=== PATIENT | male | born 2000 | race Caucasian/White ===

== ENCOUNTER 2020-07-30 00:06 | Emergency (ER) | payer OTHER, MEDICAID, SELFPAY ==
[2020-07-30 00:10] VITALS: BP 154/94; PULSE 74; RESP 18; TEMP 36.5; O2SAT 100
--- NOTE | 2020-07-30 00:20 | ED.EXTPRO ---
HPI - Extremity Problem General Chief complaint: Extremity Problem,Nontraumatic Stated complaint: feet pain Time Seen by Provider: 07/30/20 00:13 History of Present Illness HPI Narrative: Aching pain throughout the bilateral feet. He was working with cement today and is worried that it got into his boots. He says that he has already thoroughly washed his feet multiple times since then. No wounds, blisters, redness. Related Data Home Medications Medication Instructions Recorded Confirmed No Home Medications 07/30/20 07/30/20 Allergies Allergy/AdvReac Type Severity Reaction Status Date / Time No Known Allergies Allergy Verified 07/30/20 00:21 Review of Systems Review of Systems: All systems reviewed & are unremarkable except as noted in HPI and below Constitutional: Constitutional: Denies fever(s) Integumentary/Breasts: Skin/Breast: Denies erythema, Denies rash and Denies skin ulcer Neurologic: Denies numbness and Denies weakness Exam Const: General: healthy appearing, no acute distress and alert Nutritional Appearance: well nourished Orientation/consciousness: patient oriented x3 HENMT: Head: normal to inspection Cardio: Other: 2+ DP and PT pulses bilaterally Skin: General skin exam: normal color Rashes: no rashes Wounds: no wounds Neuro: General: patient oriented x3, moves all extremities and no focal motor deficits Speech: normal speech Gait exam (Neuro): Normal gait present Extrem: Other: Diffuse tenderness to bilateral feet otherwise completely normal exam Course Vital Signs Vital signs: Vital Signs Temperature 36.5 C 07/30/20 00:10 Pulse Rate 74 07/30/20 00:10 Respiratory Rate 18 07/30/20 00:10 Blood Pressure 154/94 H 07/30/20 00:10 Pulse Oximetry 100 07/30/20 00:10 Temperature 36.9 C 07/30/20 03:12 Pulse Rate 76 07/30/20 03:12 Respiratory Rate 18 07/30/20 03:12 Blood Pressure 144/83 H 07/30/20 03:12 Pulse Oximetry 98 07/30/20 03:12 MDM - Extremity (Nontraumatic) MDM Narrative Medical decision making narrative: Coud have minor or early devloping chemical burn. Nothing evident on exam. Feet are already clean and dry. Pain improved with topical steroid. Discharge Plan Discharge Clinical Impression: Exposure to chemical irritant Patient Disposition: Home, Self-Care Condition: Stable Instructions: Chemical Skin Burn (ED) Prescriptions: No Action No Home Medications RF: 0 Follow-up/Referrals: PHYSICIAN NOT ON STAFF,NONSTAFF [Primary Care Provider] - Discharge Date/Time: 07/30/20 03:13
[2020-07-30] MEDS: IBUPROFEN 600 MG TABLET PO (00:55)
[2020-07-30] MEDS: HYDROCORTISONE 1% 30 GM OINTMENT 1 APPLIC TOPICAL (00:56)
[2020-07-30 03:12] VITALS: BP 144/83; PULSE 76; RESP 18; TEMP 36.9; O2SAT 98
== END 2020-07-30 03:13 | disposition home or self-care (01) ==
PROVIDERS: Emergency Provider Emergency Medicine
DX: Z77.098 Contact with and (suspected) exposure to other hazardous, chiefly nonmedicinal, chemicals (principal)
CPT/HCPCS: 99283; A9270

== ENCOUNTER 2020-08-04 22:54 | Emergency (ER) | payer OTHER, MEDICAID, SELFPAY ==
--- NOTE | ~2020-08-04 | CT_ITS ---
EXAMINATION: CT brain wo con EXAM DATE: 08/05/2020 00:20 INDICATION: Right leg paresthesia. TECHNIQUE: Spiral CT of the head was performed without contrast. Axial, coronal and sagittal images were reviewed. The dose-length product (DLP) for this examination was 605.33 mGy-cm. The exposure w as tailored according to patient size, and iterative reconstruction (ASIR) was used as additional dos e reduction technique. Comparison is made to prior examination from 03/29/2018. FINDINGS: There is no acute intraparenchymal hemorrhage. No evidence of intraparenchymal brain mass lesion. No evidence of acute infarction. There is no mass effect or midline shift. The ventricles are normal in size. There are no extra-axial collections. There are no acute calvarial fractures. T he orbits are unremarkable. Soft tissue is unremarkable. The visualized sinuses and mastoid air paige ls are well aerated. IMPRESSION: 1. Normal head CT examination. Reviewed, dictated and finalized at location A.
--- NOTE | ~2020-08-04 | CT_ITS ---
EXAMINATION: CT LE RT w con EXAM DATE: 08/05/2020 00:20 INDICATION: Right lower extremity pain and numbness. TECHNIQUE: Spiral CTA right leg was performed following intravenous injection of 100 mL Omnipaque 350 . Axial, coronal and sagittal images were reviewed. The dose-length product (DLP) for this examinat ion was 764.62 mGy-cm. The exposure was tailored according to patient size (auto mA exposure control ), and iterative reconstruction (ASIR) was used as additional dose reduction technique. Correlation i s made to CT abdomen pelvis 10/23/2017. FINDINGS: Arteries and veins are patent, no evidence of thrombosis. There is no right knee joint effu aristeo. The thigh and calf musculature is normal. No abscess. No inguinal or right-sided pelvic lymphad enopathy. There are no acute fractures identified. IMPRESSION: Normal right lower extremity CT Reviewed, dictated and finalized at location A.
[2020-08-04 23:03] VITALS: BP 153/85; PULSE 99; RESP 16; TEMP 36.9; O2SAT 99
--- NOTE | 2020-08-04 23:05 | ED.EXTPRO ---
HPI - Extremity Problem General Chief complaint: Extremity Problem,Nontraumatic Stated complaint: RLE pain Time Seen by Provider: 08/04/20 23:05 Source: patient Mode of arrival: wheelchair Limitations: no limitations History of Present Illness HPI Narrative: Patient is a previously healthy 19-year-old male who presents for evaluation of right lower extremity numbness and weakness. Patient states symptoms have been worsening over the past 3 days and today he has been unable to ambulate. He reports a cramping type pain and stiffness in his right lower leg that begins in the knee and radiates into his calf muscle. He states that he has had no recent falls or injuries. No recent heavy lifting. He denies any back pain or abdominal pain. He denies any headache or vision changes. No weakness in his upper extremities. Patient reports concurrent numbness and paresthesias in the right lower extremity with extreme pain with movement. He states he is unable to bend his leg at the knee. He denies any fever or chills. He denies swelling or redness. No wounds. No history of injury in this leg in the past. Related Data Home Medications Medication Instructions Recorded Confirmed bupropion HCl mg PO 08/04/20 hydroxyzine HCl 08/04/20 Allergies Allergy/AdvReac Type Severity Reaction Status Date / Time No Known Allergies Allergy Verified 08/04/20 23:08 Review of Systems Review of Systems: Narrative: CONSTITUTIONAL: Denies fever, chills, or sweats. EYES: Denies visual changes ENT: Denies rhinorrhea, congestion, sore throat, or otalgia. CARDIOVASCULAR: Denies chest pain, palpitations, or edema. RESPIRATORY: Denies cough or dyspnea. GASTROINTESTINAL: Denies abdominal pain, nausea, vomiting, or diarrhea. GENITOURINARY: Denies dysuria or hematuria. SKIN: Denies rash or itching. MUSCULOSKELETAL: Denies back pain, joint pain, or myalgia. NEUROLOGIC: Denies headache, reports numbness and weakness in the right lower extremity PMFSH Past Medical History Medical History ADHD Sinus problem Social History Social History Smoking status: Never smoker Alcohol intake: never Exam Narrative: Exam Narrative: GENERAL: Awake, alert, conversant HEAD: Normocephalic, atraumatic. EYES: PERRLA and EOMI. ENT: Nares clear, no rhinorrhea or epistaxis. Mucous membranes moist. NECK: Supple. CHEST: No respiratory distress, breathing even and non labored HEART: Regular rate, sinus rhythm ABDOMEN:Non distended, non tender SKIN: Warm, dry, no rash. Extremities:Patient with decreased sensation to fine touch in the right lower extremity and right foot. He cannot discern gross motor. He does have minimal movement in the toes. DP pulses 2+. No hyperreflexia or hyperreflexia, patellar reflex 2+. Unable to complete [id number] on the right. Unable to flex at the knee on the right due to pain and numbness. Intact sensation in the medial and lateral thigh. Compartments are soft. Leg is warm and well-perfused. No edema. Right calf tenderness. No erythema. Neuro: Alert and oriented to person place and time. Finger to nose intact bilaterally. EOMs intact without nystagmus. No facial droop/asymmetry noted bilaterally. Grimace intact. Intact sensation in face. Hearing intact bilaterally. Shoulder shrug intact. Strength 5/5 bilateral upper extremities. Patient cannot raise leg against gravity in the right. Strength 5 out of 5 in the left lower extremity. Reflexes 2+ patellar. Patient cannot complete [id number]. Ambulatory exam deferred. Course Vital Signs Vital signs: Vital Signs Temperature 36.9 C 08/04/20 23:03 Pulse Rate 99 08/04/20 23:03 Respiratory Rate 16 08/04/20 23:03 Blood Pressure 153/85 H 08/04/20 23:03 Pulse Oximetry 99 08/04/20 23:03 Temperature 36.8 C 08/05/20 02:08 Pulse Rate 58 L 08/05/20 02:08
[2020-08-04] MEDS: ACETAMINOPHEN 500 MG TABLET 1000 MG PO (23:55)
[2020-08-04] MEDS: diphenhydrAMINE HCl CAP 25 MG CAPSULE PO (23:56)
[2020-08-04] MEDS: DEXAMETHASONE SOD PHOS INJ 4 MG/ML VIAL 10 MG BY MOUTH (23:56)
[2020-08-05 00:05] LABS: Basophils Absolute Auto 0.1 K/mm3 (0.0-0.1); Basophils Percent Auto 0.5 % (0.2-1.2); Eosinophils Absolute Auto 0.1 K/mm3 (0-0.3); Hematocrit 44.7 % (42.0-52.0); Immature Granulocyte Absolute 0.02 K/mm3 (0.00-0.031); Immature Granulocyte Percent A 0.2 % (0-0.5); Lymphocytes Absolute Auto 2.19 K/mm3 (0.9-3.2); Lymphocytes Percent Auto 22.3 % (18.3-44.2); Mean Corpuscular HGB Conc 35.8 g/dl (32-36); Mean Corpuscular Hemoglobin 32.8 pg (26-34); Mean Corpuscular Volume 91.6 fl (80-100); Mean Platelet Volume 8.8 fl (7.4-10.4); Monocytes Absolute Auto 0.6 K/mm3 (0.1-0.6); Monocytes Percent Auto 6.1 % (2.6-8.5); Neutrophils Absolute Auto 6.9 K/mm3 (1.3-6.7); Neutrophils Percent Auto 69.9 % (45.5-73.1); Platelet Count Result 250 k/mm3 (150-375); Red Blood Count 4.88 M/mm3 (4.6-6.20); Red Cell Distribution Width 11.9 % (11.5-14.5); White Blood Count 9.8 K/mm3 (4.5-10.0)
[2020-08-05 00:15] LABS: INR 1.1; Prothrombin Time 13.8 Seconds (11.1-14.7)
[2020-08-05 00:16] LABS: Anion Gap 9 mmol/L (8-16); Blood Urea Nitrogen 13 mg/dL (8-21); Carbon Dioxide 29 mmol/L (22-30); Chloride 101 mmol/L (98-107); Estimated CRCL calculation 108 ml/min; Estimated Glomerular Filt Rate > 60; Glucose 92 mg/dL (75-110); Partial Thromboplastin Time 29.5 SECONDS (22.3-36.8); Potassium 3.2 mmol/L (3.4-5.0); Sodium 139 mmol/L (134-143)
[2020-08-05 00:34] VITALS: BP 142/69; PULSE 69; RESP 16; O2SAT 99
[2020-08-05] MEDS: diazePAM (*CRX) 5 MG TABLET PO (00:58)
--- NOTE | 2020-08-05 01:04 | PC.NURSE ---
Pt was able to ambulate around the room and to the bathroom without pain. Pt states the numbness in his foot has improved. notified
[2020-08-05 02:08] VITALS: BP 123/68; PULSE 58; RESP 16; TEMP 36.8; O2SAT 100
== END 2020-08-05 02:11 | disposition home or self-care (01) ==
LOC: ANHED 23:58
PROVIDERS: Emergency Provider Emergency Medicine; PCP Family Medicine Sports Medicine
DX: M62.838 Other muscle spasm (principal)
CPT/HCPCS: 36415; 70450; 73701; 80048; 85025; 85610; 85730; 99284; A9270; J1100; Q9967

== ENCOUNTER 2020-12-31 17:16 | Emergency (ER) | payer OTHER, MEDICAID, SELFPAY ==
--- NOTE | ~2020-12-31 | XR_ITS ---
EXAMINATION: XR lumbar spine 2-3V DATE: 12/31/2020 18:42 INDICATION: Low back pain post fall. TECHNIQUE: Anteroposterior and lateral views of the lumbar spine, and cone-down lateral view of the l umbosacral junction were obtained. COMPARISON: Lumbar spine radiographs dated 06/04/2017 FINDINGS: Again seen are congenitally unfused posterior elements at L5 and S1. 11 degree lumbar levoscoliosis. Sagittal alignment is normal. Vertebral body and disc heights are normal. No significant lumbar facet osteoarthritis. Sacrum and bilateral sacroiliac joints are normal. Normal bowel gas pattern. Visuali zed posterior lung bases are clear with no pleural effusion. IMPRESSION: 1. Mild lumbar levoscoliosis. 2. Congenital L5 and S1 posterior dysraphism. Reviewed, dictated and finalized at location A. [employer]
[2020-12-31 17:18] VITALS: BP 135/98; PULSE 70; RESP 16; TEMP 35.9; O2SAT 100
--- NOTE | 2020-12-31 18:35 | PC.NURSE ---
PT TO XRAY VIA W/C
[2020-12-31] MEDS: KETOROLAC (*BKC) 60 MG/2 ML VIAL IM (18:42)
--- NOTE | 2020-12-31 19:04 | ED.GENADULT ---
HPI - General Adult General Chief complaint: Fall Stated complaint: fall Time Seen by Provider: 12/31/20 17:24 Source: patient Mode of arrival: ambulatory Limitations: no limitations History of Present Illness HPI narrative: Patient is a 20-year-old male who presents with low back pain radiating to the thighs that began today patient notes that he was walking slipped falling on his back pain is constant patient has not had anything for his pain presents per private vehicle. Patient denies head injury or other complaints Related Data Home Medications Medication Instructions Recorded Confirmed bupropion HCl mg PO 08/04/20 hydroxyzine HCl 08/04/20 Allergies Allergy/AdvReac Type Severity Reaction Status Date / Time No Known Allergies Allergy Verified 12/31/20 17:54 Review of Systems Review of Systems: All systems reviewed & are unremarkable except as noted in HPI and below PMFSH Past Medical History Medical History (Updated 12/31/20 @ 19:29 by Tyron Barrientos PA-C) ADHD Sinus problem Social History Social History Smoking status: Never smoker Alcohol intake: never Exam Narrative: Exam Narrative: GENERAL: Well-appearing, well-nourished, and in no acute distress. HEAD: Normocephalic, atraumatic. EYES: PERRLA and EOMI. ENT: Nares clear, no rhinorrhea or epistaxis. Mucous membranes moist. CHEST: Clear to auscultation. No respiratory distress. No wheezes rales or rhonchi HEART: Regular rate and rhythm. No murmur heard. EXTREMITIES: Normal range of motion. No edema. Tenderness across the lumbar region no thoracic or cervical tenderness SKIN: Warm, dry, no rash. NEURO: No focal deficits. Alert and oriented x3. Cranial nerves II through XII grossly intact PSYCH: Normal mood and affect. Course Course Emergency Course: Patient evaluated negative radiographs will be treated for musculoskeletal back pain Vital Signs Vital signs: Vital Signs Temperature 96.7 F L 12/31/20 17:18 Pulse Rate 70 12/31/20 17:18 Respiratory Rate 16 12/31/20 17:18 Blood Pressure 135/98 H 12/31/20 17:18 Pulse Oximetry 100 12/31/20 17:18 Temperature 96.7 F L 12/31/20 17:18 Pulse Rate 70 12/31/20 17:18 Respiratory Rate 16 12/31/20 17:18 Blood Pressure 135/98 H 12/31/20 17:18 Pulse Oximetry 100 12/31/20 17:18 Medical Decision Making MDM Narrative Medical decision making narrative: Patient in the room at this time aware of case findings treatment plan diagnosis felt appropriate for outpatient reevaluation will be treated musculoskeletal back pain negative radiographs Vital Signs Vital Signs: Vital Signs Temperature 96.7 F L 12/31/20 17:18 Pulse Rate 70 12/31/20 17:18 Respiratory Rate 16 12/31/20 17:18 Blood Pressure 135/98 H 12/31/20 17:18 Pulse Oximetry 100 12/31/20 17:18 Temperature 96.7 F L 12/31/20 17:18 Pulse Rate 70 12/31/20 17:18 Respiratory Rate 16 12/31/20 17:18 Blood Pressure 135/98 H 12/31/20 17:18 Pulse Oximetry 100 12/31/20 17:18 Imaging Data Radiologist's impression: ITS Impressions Lumbar Spine X-Ray 12/31/20 19:14 IMPRESSION: 1. Mild lumbar levoscoliosis. 2. Congenital L5 and S1 posterior dysraphism. Discharge Plan Discharge Clinical Impression: Acute bilateral low back pain Patient Disposition: Home, Self-Care Condition: Stable Instructions: Antibiotic Form, Acute Low Back Pain (ED) Additional Instructions: Medications as needed and prescribed. Limit lifting and bending. You may apply heat or cold to the area as needed. Follow up with your doctor for further care in the next 3 days. Contact your doctor or return to the emergency department if you develop problems with bladder or bowel function, weakness or loss of feeling in one or both of your legs, or any other serious concerns. Prescriptions: New naproxen 500 mg tablet 500 m
== END 2020-12-31 20:22 | disposition home or self-care (01) ==
PROVIDERS: Emergency Provider Emergency Medicine
DX: M54.5 Low back pain (principal); F90.9 Attention-deficit hyperactivity disorder, unspecified type; Q76.49 Other congenital malformations of spine, not associated with scoliosis
CPT/HCPCS: 72100; 96372; 99283; J1885

== ENCOUNTER 2022-06-10 12:26 | Emergency (ER) | payer OTHER, MEDICAID, SELFPAY ==
[2022-06-10 12:47] VITALS: BP 137/68; PULSE 78; RESP 18; TEMP 36.4; O2SAT 99
--- NOTE | 2022-06-10 12:59 | ED.GENADULT ---
HPI - General Adult General Chief complaint: Upper Respiratory Infection Stated complaint: throat and bilateral ear pain History of Present Illness HPI narrative: 21 y/o male. PMHx Non-contributory. Presents to Express care today with acute complaints of sore throat and bilateral ear pain, worsening in the past 72 hours. He reports a bilateral throbbing and full sensation in his ears. In addition, hurts to swallow . No fever,chills. No neck pain, stiffness. No cough, chest congestion. Denies known ill contacts. Related Data Home Medications Medication Instructions Recorded Confirmed methylphenidate HCl 36 mg 36 mg PO DAILY 06/10/22 06/10/22 tablet,extended release 24 hr Allergies Allergy/AdvReac Type Severity Reaction Status Date / Time No Known Allergies Allergy Verified 06/10/22 12:57 Review of Systems Review of Systems: CONSTITUTIONAL: Denies fever, chills, sweats. EYES: Denies visual changes, redness, discharge. ENT: Denies rhinorrhea, congestion. Positive sore throat, otalgia. CARDIOVASCULAR: Denies chest pain, palpitations, edema. RESPIRATORY: Denies dyspnea, wheezing, cough GASTROINTESTINAL: Denies abdominal pain, nausea, vomiting, diarrhea. GENITOURINARY: Denies dysuria, hematuria, abnormal discharge SKIN: Denies rash or itching. MUSCULOSKELETAL: Denies acute back pain, joint pain, or myalgia. NEUROLOGIC: Denies numbness, or focal weakness. PSYCHIATRIC: Denies anxiety or depression. PMFSH Past Medical History Medical History ADHD Sinus problem Social History Social History Smoking status: Never smoker Alcohol intake: never Exam Narrative: GENERAL: This is a well-nourished, well-developed adult, in no apparent distress. HEAD: normocephalic, atraumatic. EYES: PERRL. Sclera clear/white. EARS: External ears normal, auditory canals clear and without drainage, TMs normal. NOSE: External nose normal. Positive Rhinorrhea, no obstruction, nares patent. THROAT: Mucous membranes moist, posterior pharynx is erythematous, minimal exudative changes. No swelling, no distress. NECK: Neck supple, non-tender without lymphadenopathy, masses or thyromegaly. CARDIOVASCULAR: Regular rate and rhythm without murmurs, gallops, or rubs. RESPIRATORY: Clear to auscultation. Breath sounds equal bilaterally. No wheezes, rales, or rhonchi. GASTROINTESTINAL: Abdomen soft, non-tender, nondistended. Bowel sounds are active. No guarding. SKIN: warm, intact with no suspicious lesions or rash, good texture and turgor. NEURO: Alert, active, and age appropriate. No focal neurologic deficits. EXTREMITIES: Negative. Course Course Level of Care: Express Care Visit Vital Signs Vital signs: Vital Signs Temperature 36.4 C 06/10/22 12:47 Pulse Rate 78 06/10/22 12:47 Respiratory Rate 18 06/10/22 12:47 Blood Pressure 137/68 06/10/22 12:47 Pulse Oximetry 99 06/10/22 12:47 Oxygen Delivery Room Air 06/10/22 12:47 Temperature 36.4 C 06/10/22 12:47 Pulse Rate 78 06/10/22 12:47 Respiratory Rate 18 06/10/22 12:47 Blood Pressure 137/68 06/10/22 12:47 Pulse Oximetry 99 06/10/22 12:47 Oxygen Delivery Room Air 06/10/22 12:47 Medical Decision Making Differential Diagnosis Differential Diagnosis: Differential Diagnosis: Consideration of the following conditions may be warranted for the presenting problem, they are not final diagnoses: upper respiratory infection, otitis media, sinusitis, RSV viral infection, bronchitis, pharyngitis, Streptococcal sore throat, COVID-19, and other. Vital Signs Vital Signs: Vital Signs Temperature 36.4 C 06/10/22 12:47 Pulse Rate 78 06/10/22 12:47 Respiratory Rate 18 06/10/22 12:47 Blood Pressure 137/68 06/10/22 12:47 Pulse Oximetry 99 06/10/22 12:47 Oxygen Delivery Room Air 06/10/22 12:47 [place]
== END 2022-06-10 13:06 | disposition home or self-care (01) ==
PROVIDERS: Emergency Provider Nurse Practitioner Adult Health; PCP Nurse Practitioner Family
DX: J02.9 Acute pharyngitis, unspecified (principal); F90.9 Attention-deficit hyperactivity disorder, unspecified type
CPT/HCPCS: 99213; G0463